=== PATIENT | male | born 1970 | race Two or more races ===

== ENCOUNTER → 2017-05-27 | Emergency (ER) | payer OTHER ==
[~2017-05-27] VITALS: Ht 170.2 cm; Wt 83.9 kg
[~2017-05-27] MED LIST: LOSARTAN POTAS100 MG; NIFEDIPINE ER30 M1; PNEU16DI2; TOPROL XL100 M1
== END | disposition left against medical advice (07) ==
LOC: ER 05:50
DX: Z53.20 Procedure and treatment not carried out because of patient's decision for unspecified reasons (principal)